=== PATIENT | female | born 1980 | race Caucasian/White ===

== ENCOUNTER 2017-06-25 07:07 | Emergency (ER) | payer MEDICARE ==
[~2017-06-25] VITALS: Ht 154.9 cm; Wt 65.0 kg
[~2017-06-25 07:07] MED LIST: AMBIEN 10MG10 MG PO; AMBIEN 5MG TABLE5 MG PO; AMITRIPTYLINE H50 M1 PO; ANAPROX DS550 MG PO; ATIVAN 0.50.5 MG/TAB PO; CARAFATE 1GM1 G PO; CEFTIN500 MG PO; CEPHALEXIN500 M1 PO; COMPAZINE 110 MG/TAB PO; CYMBALTA 60MG60 MG PO; DESYREL 50MG50 MG PO; FIORICET 325 MG1 TA1 PO; FLAGYL 250250 MG/TAB; FLEXERIL 1010 MG/TAB PO; IMITREX 6M6 MG/0.5 M SQ; IMITREX ST6 MG/0.5 M SC; KEPPRA250 MG PO; KLONOPIN 0.5MG0.5 MG PO; LORTAB 5/500 501 TAB; LORTAB 5/500 501 TAB PO; LYRICA 50MG CAP50 MG PO; MAGNESIUM OXID250 MG PO; MAGNESIUM250 MG PO; MEDROL 4MG DOSPA4 MG PO; MONONESSA 35 MC1 TA1 PO; NAPROSYN500 MG PO; NEURONTIN100 MG/CAP PO; NORCO 325 MG-51 TAB PO; PERCOCET 325 MG1 TA2 PO; PERCOCET 325 MG1 TAB PO; PRILOSEC 20MG20 MG PO; PROZAC40 MG PO; PSYLLIUM HUSK PO; SEROQUEL50 MG PO; TOPAMAX 100MG100 M1 PO; TOPAMAX 25MG25 M1 PO; TOPAMAX50 MG PO; TYLENOL ARTHRI650 M1 PO; ULTRAM 50MG TAB50 MG PO; VENTOLIN0.09 MG IH; VERELAN240 MG PO; VISTARIL 2525 MG/CAP; VISTARIL50 MG PO; XANAX 0.5MG0.5 MG PO; ZANAFLEX2 MG PO; ZOFRAN 4MG T4 MG/TAB PO
[2017-06-25 07:10] VITALS: BP 110/62; TEMP 98.2
[2017-06-25] MEDS ORDERED: DAZIDOX10 MG PO (07:13)
[2017-06-25] MEDS ORDERED: OXYCONTIN30 MG PO (07:13)
[2017-06-25] MEDS ORDERED: ZANAFLEX 4MG TAB4 MG PO (07:15)
[2017-06-25] MEDS ORDERED: XANAX 1MG1 MG PO (07:15)
[2017-06-25] MEDS ORDERED: OMNICEF 300MG300 MG PO (07:15)
[2017-06-25] MEDS ORDERED: MOBIC15 MG PO (07:16)
[2017-06-25] MEDS ORDERED: PERIACTIN 4MG TA4 MG PO (07:16)
[2017-06-25] MEDS ORDERED: MEDROL 4MG DOSPA4 MG PO (07:39)
[2017-06-25 08:11] LABS: COLLECTION METHOD CLEAN CATCH
[2017-06-25 08:25] LABS: AMORPHOUS CRYSTAL Present /uL; BUDDING YEAST Present /hpf; MUCOUS Present /lpf; PH 6 (5-8); URINE APPEARANCE Cloudy; URINE BACTERIA Rare /hpf; URINE BILIRUBIN Negative (NEGATIVE); URINE BLOOD Negative (NEGATIVE); URINE COLOR Yellow; URINE GLUCOSE Negative (NEGATIVE); URINE KETONE Trace (NEGATIVE); URINE LEUKOCYTE ESTERASE Negative (NEGATIVE); URINE PROTEIN(semi-quant) Negative (NEGATIVE); URINE WBC 0-2 /hpf
[2017-06-25] MEDS ORDERED: DIFLUCAN150 MG PO (08:38)
[2017-06-25 09:19] VITALS: PULSE 64
== END 2017-06-25 09:17 | disposition home or self-care (01) ==
LOC: COL.ER 07:07
PROVIDERS: Physician Assistant
DX: G89.29 Other chronic pain (principal); M54.9 Dorsalgia, unspecified; B37.3 Candidiasis of vulva and vagina; G43.909 Migraine, unspecified, not intractable, without status migrainosus; F17.210 Nicotine dependence, cigarettes, uncomplicated

== ENCOUNTER → 2017-07-12 | Outpatient (CLI) | payer MEDICARE ==
[~2017-07-12] MED LIST changes: +DAZIDOX10 MG PO; +DIFLUCAN150 MG PO; +MOBIC15 MG PO; +OMNICEF 300MG300 MG PO; +OXYCONTIN30 MG PO; +PERIACTIN 4MG TA4 MG PO; +XANAX 1MG1 MG PO; +ZANAFLEX 4MG TAB4 MG PO
== END ==
LOC: MHCPAIN 14:40
DX: G89.29 Other chronic pain (principal); M47.817 Spondylosis without myelopathy or radiculopathy, lumbosacral region; M53.3 Sacrococcygeal disorders, not elsewhere classified; F17.210 Nicotine dependence, cigarettes, uncomplicated
CPT/HCPCS: G0463

== ENCOUNTER → 2018-06-07 | Outpatient (CLI) | payer MEDICARE | LOC: COL.PUL 05-09 13:00 | DX: R06.02 Shortness of breath (principal); F17.210 Nicotine dependence, cigarettes, uncomplicated | CPT/HCPCS: J7674 ==

== ENCOUNTER 2019-09-16 21:21 | Emergency (ER) | payer MEDICARE, MEDICAID ==
[~2019-09-16] VITALS: Ht 162.6 cm; Wt 53.6 kg
[2019-09-16 21:32] VITALS: TEMP 98.2
[2019-09-16 22:12] LABS: BASO # 0.1 (0.0-0.2); BASO % 0.6 % (0.0-2.0); EOS # 0.1 (0.0-0.7); EOS % 0.6 % (0-4.0); GRAN # 4.4 (1.4-6.5); GRAN % 50.4 % (42.2-75.2); HEMATOCRIT 41.3 % (37.0-47.0); HEMOGLOBIN 13.7 g/dl (12.5-16.0); LYMPH # 3.6 (1.2-3.4); MEAN CELL VOLUME 97 fl (80.0-100.0); MEAN CORPUSCULAR HEMOGLOBIN 32 pg (27.0-31.0); MEAN CORPUSCULAR HGB CONC 33 g/dl (33.0-37.0); MEAN PLATELET VOLUME 8.4 fl (7.4-10.4); MONO # 0.6 (0.1-0.6); MONO % 7.2 % (1.7-9.3); PLATELET COUNT 277 K/mm3 (130-400); RED BLOOD COUNT 4.25 M/mm3 (4.10-5.30); REDCELL DISTRIBUTION WIDTH-CV 13.6 % (11.5-14.5)
[2019-09-16 22:22] LABS: ALANINE AMINOTRANSFERASE 23 U/L (9-52); ALBUMIN 4.2 gm/dL (3.5-5.0); ALKALINE PHOSPHATASE 67 U/L (50-136); ANION GAP 10 mmol/L (7-16); AST,SGOT 21 U/L (15-37); BILIRUBIN,TOTAL 0.2 mg/dL (0.0-1.0); BLOOD UREA NITROGEN 15 mg/dL (7-17); CALCIUM 9.2 mg/dL (8.4-10.2); CARBON DIOXIDE 21 mmol/L (22-30); CHLORIDE 109 mmol/L (98-107); CREATININE, serum 0.69 (0.52-1.25); GLUCOSE 97 mg/dL (74-106); POTASSIUM 3.2 mmol/L (3.4-5.0); SODIUM 140 mmol/L (137-145); TOTAL PROTEIN 7.4 gm/dL (6.4-8.2)
[2019-09-16 22:52] LABS: C-REACTIVE PROTEIN < 0.5 mg/dL (0.0-0.9)
[2019-09-16] MEDS ORDERED: LEVAQUIN 5500 MG/TA1 PO (23:04)
[2019-09-17] MEDS ORDERED: PHENERGAN 25 TA25 MG PO (00:07)
[2019-09-17 00:34] VITALS: BP 126/68; PULSE 68
== END 2019-09-17 00:34 | disposition home or self-care (01) ==
LOC: COL.ER 21:21
PROVIDERS: Emergency Medicine
DX: J20.9 Acute bronchitis, unspecified (principal); G43.909 Migraine, unspecified, not intractable, without status migrainosus; F17.210 Nicotine dependence, cigarettes, uncomplicated; Z79.52 Long term (current) use of systemic steroids
CPT/HCPCS: J0595; J1170; J1200; J2550; J7030

== ENCOUNTER → 2019-12-05 | Outpatient (CLI) | payer MEDICARE, MEDICAID ==
[~2019-12-05] MED LIST changes: +LEVAQUIN 5500 MG/TA1 PO; +PHENERGAN 25 TA25 MG PO
== END ==
LOC: COL.RAD 08:29
DX: K30 Functional dyspepsia (principal); K58.9 Irritable bowel syndrome, unspecified
CPT/HCPCS: A9541

== ENCOUNTER → 2020-12-28 | Outpatient (REF) | LOC: ZLAB.WCH 15:58 | DX: Z01.89 Encounter for other specified special examinations (principal) ==